=== PATIENT | female | born 1945 | race Caucasian/White ===

== ENCOUNTER 2021-12-29 17:04 | Emergency (ER) | payer MEDICARE, SELFPAY ==
--- NOTE | ~2021-12-29 | XR_ITS ---
EXAMINATION: PELVIS AND BILATERAL HIPS, LEFT SHOULDER, LEFT HUMERUS CLINICAL INFORMATION: Fall with pain COMPARISON: Chest radiograph 01/31/2019, CT abdomen pelvis 11/21/2013 TECHNIQUE: 2 views left shoulder, 2 views left humerus, single view pelvis, 2 additional views each hip FINDINGS: Shoulder and humerus: Degenerative changes are present in the shoulder with joint space narrowing and some osteophyte formation. AC joint degenerative changes are present as well. Calcifications seen overlying the humeral head and in the subacromial area could be intra-articular osseous bodies. Some may be related to rotator cuff calcification. No fractures or dislocations. The remainder of the humerus is unremarkable without fracture Pelvis and bilateral hips: Bilateral total hip prostheses are present in good position without evidence of loosening or periprosthetic fractures. No joint dislocation. The remainder of the pelvis appears unremarkable. XR/XR shoulder LT min 2V IMPRESSION: No evidence of traumatic injury involving the left shoulder, left humerus, pelvis or hips. Other incidental findings as described above
--- NOTE | ~2021-12-29 | CT_ITS ---
EXAMINATION: CT HEAD WITHOUT CONTRAST CLINICAL INFORMATION: Fall. Head strike. COMPARISON: None TECHNIQUE: Contiguous axial imaging was performed from the skull base to vertex without intravenous administration of contrast. Coronal and sagittal reformatted images are performed at CT scanner This CT examination was performed using dose optimization techniques as appropriate, variously including the following: *Automated exposure control *Adjustment of mA and/or kV according to patient size (this includes techniques or standardized protocols for targeted exams where dose is matched to indication/reason for exam; i.e. extremities or head) *Use of iterative reconstruction technique DLP: 672 mGy-cm FINDINGS: There is no evidence of acute intracranial hemorrhage or territorial infarction. No abnormal mass effect or midline shift is seen. Saleh to white matter differentiation is well preserved. No extra-axial fluid collections are identified. The ventricles are normal in size. There is no abnormal attenuation within the brain parenchyma. The osseous structures and soft tissues are normal. Small volume of mucosal thickening in the left frontal sinus. Significant mucosal density in the left sphenoid sinus and a small volume of mucosal density in the dependent right sphenoid sinus. CT/CT head/brain wo con IMPRESSION: No acute intracranial pathology.
--- NOTE | ~2021-12-29 | XR_ITS ---
EXAMINATION: PELVIS AND BILATERAL HIPS, LEFT SHOULDER, LEFT HUMERUS CLINICAL INFORMATION: Fall with pain COMPARISON: Chest radiograph 01/31/2019, CT abdomen pelvis 11/21/2013 TECHNIQUE: 2 views left shoulder, 2 views left humerus, single view pelvis, 2 additional views each hip FINDINGS: Shoulder and humerus: Degenerative changes are present in the shoulder with joint space narrowing and some osteophyte formation. AC joint degenerative changes are present as well. Calcifications seen overlying the humeral head and in the subacromial area could be intra-articular osseous bodies. Some may be related to rotator cuff calcification. No fractures or dislocations. The remainder of the humerus is unremarkable without fracture Pelvis and bilateral hips: Bilateral total hip prostheses are present in good position without evidence of loosening or periprosthetic fractures. No joint dislocation. The remainder of the pelvis appears unremarkable. XR/XR hip BI w PEL1V IMPRESSION: No evidence of traumatic injury involving the left shoulder, left humerus, pelvis or hips. Other incidental findings as described above
--- NOTE | ~2021-12-29 | XR_ITS ---
EXAMINATION: XR FEMUR, LEFT CLINICAL INFORMATION: Pain. COMPARISON: Pelvis and bilateral hip today. Left hip 05/25/2007 TECHNIQUE: AP and lateral views of the left femur were obtained. FINDINGS: Status post left hip replacement. Orthopedic components in position. The There is a small linear fracture of the lateral cortex of the proximal left femur adjacent to the proximal portion of the femoral component of the prosthesis. No dislocation. The mid and distal shaft of the femur is normal. Knee is unremarkable. XR/XR femur LT 2V IMPRESSION: 1. Status post left hip replacement. 2. There is an incomplete fracture of the proximal shaft of the femur, periprosthetic fracture. This can be further assessed with CT.
--- NOTE | ~2021-12-29 | CT_ITS ---
EXAMINATION: CT HIP WITHOUT CONTRAST, LEFT CLINICAL INFORMATION: Evaluate proximal femur fracture status post fall with pain COMPARISON: Left hip and femur radiographs performed earlier the same date TECHNIQUE: Axial images were obtained through the left hip without the administration of intravenous contrast. Coronal and sagittal reformatted images were generated. This CT examination was performed using dose optimization techniques as appropriate, variously including the following: *Automated exposure control *Adjustment of mA and/or kV according to patient size (this includes techniques or standardized protocols for targeted exams where dose is matched to indication/reason for exam; i.e. extremities or head) *Use of iterative reconstruction technique DLP: 309 mGy-cm FINDINGS: Status post noncemented left total hip arthroplasty. Incomplete nondisplaced cortical fracture through the lateral posterior proximal subtrochanteric femur corresponding to the finding on the plain radiograph. No additional fracture or involvement distal to the tip of the femoral stem. No significant periprosthetic radiolucency or areas of osteolysis. The femoral head component is centrally positioned within the acetabular cup. Mild degenerative change the pubic symphysis and SI joints with subchondral sclerosis, small osteophytes, and vacuum disc phenomena at the sacroiliac joint. Other findings: No dilated bowel loops in the [id number]. No free pelvic fluid. Bladder and gynecologic structures are grossly unremarkable-Limited assessment allowing for streak artifact. No pelvic or inguinal lymphadenopathy. Moderate atherosclerotic vascular calcifications. Mild soft tissue swelling/perimuscular edema in the left proximal thigh/anterior compartment. Status post right total hip arthroplasty. No evidence of loosening, periprosthetic fracture, or osteolysis. CT/CT hip LT wo con IMPRESSION: 1. Nondisplaced transverse incomplete left periprosthetic femur fracture involving the proximal subtrochanteric femur. No involvement distal to the tip of the femoral stem. 2. No evidence of osteolysis or loosening.
--- NOTE | ~2021-12-29 | XR_ITS ---
EXAMINATION: PELVIS AND BILATERAL HIPS, LEFT SHOULDER, LEFT HUMERUS CLINICAL INFORMATION: Fall with pain COMPARISON: Chest radiograph 01/31/2019, CT abdomen pelvis 11/21/2013 TECHNIQUE: 2 views left shoulder, 2 views left humerus, single view pelvis, 2 additional views each hip FINDINGS: Shoulder and humerus: Degenerative changes are present in the shoulder with joint space narrowing and some osteophyte formation. AC joint degenerative changes are present as well. Calcifications seen overlying the humeral head and in the subacromial area could be intra-articular osseous bodies. Some may be related to rotator cuff calcification. No fractures or dislocations. The remainder of the humerus is unremarkable without fracture Pelvis and bilateral hips: Bilateral total hip prostheses are present in good position without evidence of loosening or periprosthetic fractures. No joint dislocation. The remainder of the pelvis appears unremarkable. XR/XR humerus LT IMPRESSION: No evidence of traumatic injury involving the left shoulder, left humerus, pelvis or hips. Other incidental findings as described above
[2021-12-29 17:14] VITALS: BP 162/84; BP 166/80; PULSE 87; PULSE 96; RESP 16; TEMP 37.2; O2SAT 97; O2SAT 98; BMI 24.4
--- NOTE | 2021-12-29 17:43 | ED.FALL ---
HPI - Fall General Chief Complaint: Fall <Stacey Uriarte IRASEMA Mayers - Last Filed: 12/30/21 01:20> Stated Complaint: FALL/ LEFT SIDE LEG PAIN <Stacey Uriarte IRASEMA Mayers - Last Filed: 12/30/21 01:20> Time Seen by Provider: 12/29/21 17:15 <Stacey Kalanibrennan Mayesr CNP - Last Filed: 12/30/21 01:20> Source: patient <Stacey Uriarte IRASEMA Mayers Rita Last Filed: 12/30/21 01:20> Mode of arrival: ambulatory <Stacey Uriarte IRASEMA Mayers Rita Last Filed: 12/30/21 01:20> Limitations: no limitations <Stacey Uriarte IRASEMA Mayers Rita Last Filed: 12/30/21 01:20> History of Present Illness HPI Narrative: Patient presents to the emergency department via EMS after mechanical fall at home. She states that she was walking in her garage and went to turn tripping over a stool that her foot got caught in. She fell landing on her left side. She struck her face against the cement. Denies any loss of consciousness. Denies use of anticoagulants. Denies headache, vision changes, facial pain, neck pain. Currently reporting pain to the left shoulder and upper arm, bilateral hip, and left upper leg. Denies numbness or tingling of the extremities. Denies any precipitating symptoms prior to the fall such as dizziness or lightheadedness. Denies chest pain, palpitations, shortness of breath, difficulty breathing, of abdominal pain <StaceyIRASEMA Mayo Last Filed: 12/30/21 01:20> Related Data Home Medications: Home Medications Medication Instructions Recorded Confirmed atenolol 100 mg tablet 1 tab PO BID 12/29/21 12/29/21 nifedipine 60 mg tablet,extended 1 tab PO DAILY 12/29/21 12/29/21 release 24 hr <StaceyIRASEMA Mayo Last Filed: 12/30/21 01:20> Allergies/Adverse Reactions: Allergies Allergy/AdvReac Type Severity Reaction Status Date / Time metformin AdvReac Mild Gastrointestinal Verified 12/29/21 17:13 Upset <StaceyIRASEMA Mayo Last Filed: 12/30/21 01:20> Review of Systems Review of Systems: Constitutional: No fever, chills, weakness or fatigue. Skin: No rash or itching. Cardiovascular: No chest pain, chest pressure or chest discomfort. No palpitations Respiratory: No shortness of breath, cough or sputum production. Gastrointestinal: No anorexia, nausea, vomiting or diarrhea. No abdominal pain Genitourinary: No burning micturition. No urinary frequency or incontinence. Musculoskeletal: Joint pain as noted in HPI Psychiatric: No depression or anxiety. <Stacey Mayers CNP - Last Filed: 12/30/21 01:20> Yes all other systems are reviewed and are negative <Stacey Mayers CNP - Last Filed: 12/30/21 01:20> [facility] Past Medical History Attestation statement: The following information was validated with the patient. <Stacey Mayers CNP - Last Filed: 12/30/21 01:20> Source: old records reviewed <Stacey Mayers CNP - Last Filed: 12/30/21 01:20> Medical History: Medical History FH: bilateral hip replacements Hypertension Type 2 diabetes mellitus <Stacey Mayers CNP - Last Filed: 12/30/21 01:20> Social History Social History: Social History Alcohol intake: never Patient Tobacco Use Status: Former Tobacco user Use of substances other than those prescribed or required for medical reasons: No Advance Directives: Yes Advance Directives Information Provided: No Advance Directives on File: No <Stacey Mayers CNP - Last Filed: 12/30/21 01:20> Physical Exam Vital Signs: Vital Signs: Last Vital Signs Temp 97.2 F 12/30/21 06:00 Pulse 71 12/30/21 08:30 Resp 18 12/30/21 08:30 BP 113/75 12/30/21 08:30 Pulse Ox 98 12/30/21 08:30 O2 Del Method 12/30/21 08:30 BMI result Body Mass Index 24.4 <tSacey Mayers CNP - Last Filed: 12/30/21 01:20> Vital Signs: Last Vital Signs Temp 97.2 F 12/30/21 06:00 Pulse 71 12/30/21 08:30 Resp 18 12/30/21 08:30 BP 113/75 12/30/21 08:30 Pulse Ox 98 12/30/21 08:30 O2 Del Method 12/30/21 08:30 BMI result Body Mass Index 24.4 <Loly Shelley NP - Last Filed: 12/30/21 11:05> Appearance: Alert.?Oriented to person, place and time. No acute distress.?Normal affect. Head: Normocephalic, no tenderness upon palpation of the facial bones Eyes: Pupils equal, round and reactive to light.? EOMi. ENT: Pharynx normal.?? Neck: Normal inspection.? Neck supple.??No midline cervical spine tenderness, step-offs, deformities CVS: Heart sounds normal. Normal heart rate and rhythm.? Pulses normal.?? Respiratory: No respiratory distress.? Lung sounds clear to auscultation bilaterally?? Abdomen: Soft and non-tender. Normoactive bowel sounds. Skin: Skin warm and dry.? Normal skin color.? Extremities: No lower extremity edema.? No obvious deformities. Tenderness to palpation diffusely across the left shoulder and into the humerus, left femur tenderness upon palpation Neuro: Moves all extremities spontaneously. Sensation intact bilaterally. CN II-XII intact. No focal neuro deficits. <Stacey Mayers CNP - Last Filed: 12/30/21 01:20> Course Course Course Narrative: Patient is a 76-year-old female with a past medical history of bilateral hip replacements, hypertension, type 2 diabetes who presents to the emergency department after a mechanical fall. Will obtain CT of the head, x-ray of the left shoulder and humerus, x-ray of the bilateral hip/pelvis and left femur. She is overall well-appearing, vital signs are stable, in no apparent distress. Limited active range of motion to the left hip and left shoulder. Neurovascularly intact distally. <Stacey Mayers CNP - Last Filed: 12/30/21 01:20> Reevaluation(s) Reevaluation #1: X-ray of the bilateral hips and pelvis shows hip prostheses in good position, no dislocation, pelvis is unremarkable. X-ray of the left shoulder reveals degenerative changes, humerus without any acute fracture. X-ray of the left femur reveals an incomplete fracture of the proximal shaft of the femur, periprosthetic fracture. Consult orthopedics Dr. Loving, who reviewed the imaging does not believe patient to be a surgical candidate based on x-ray, advised to obtain CT for further examination, nonweightbearing, outpatient follow-up in office. Orthopedics to evaluate patient in the morning while in the ED <Stacey Mayers CNP - Last Filed: 12/30/21 01:20> Time: 20:05 <Stacey Mayers CNP - Last Filed: 12/30/21 01:20> Reevaluation #2: CT of the left hip reveals nondisplaced transverse incomplete left periprosthetic femur fracture involving the proximal subtrochanteric femur. COVID-19 testing is negative. Patient will be placed in physician observation at this time, she will require additional time to be evaluated by Physical therapy and for Case Management to be involved to assist with disposition to short-term rehab. <Stacey Mayers CNP - Last Filed: 12/30/21 01:20> Reevaluation #3: 1100-medications are reconciled last evening. Patient was seen by Orthopedics this morning and recommend nonweightbearing but no surgical intervention. No complaints nursing overnight. Vital signs reviewed and stable. Will continue physician observation pending disposition <Loly Shelley NP - Last Filed: 12/30/21 11:05> MDM - Fall Medical Records Attestation: I reviewed the patient's medical records. <Stacey Mayers CNP - Last Filed: 12/30/21 01:20> Lab Data Result diagrams: : 12/29/21 22:04 12/29/21 22:04 <Stacey Mayers CNP - Last Filed: 12/30/21 01:20> Labs: Lab Results 12/29/21 12/29/21 12/29/21 Range/Units 21:57 22:04 22:04 WBC 15.1 H (4.8-10.8) X10*3/uL RBC 4.80 (4.20-5.50) X10*6/uL Hgb 14.4 (12.0-16.0) g/dl Hct 41.5 (37.0-47.0) % MCV 86.5 (80.0-98.0) fL MCH 30.0 (27.0-33.0) pg MCHC 34.7 (31.0-35.0) g/dl RDW 12.5 (11.0-16.0) % Plt Count 263 (160-400) X10*3/uL MPV 9.4 (9.4-12.3) fL Immature Gran % (Auto) 0.4 (0.0-0.4) % Neut % (Auto) 80.4 H (45-73) % Lymph % (Auto) 12.5 L (20-40) % [place] % (Auto) 6.1 (2-11) % Eos % (Auto) 0.3 (0-4) % Baso % (Auto) 0.3 (0-2) % Lymph # (Auto) 1.9 (1.2-4.9) X10*3/uL [place] # (Auto) 0.9 (0.1-1.2) X10*3/uL Eos # (Auto) 0.0 (0.0-0.4) X10*3/uL Baso # (Auto) 0.1 (0.0-0.2) X10*3/uL Abs Immat Gran (auto) 0.06 H (0.00-0.03) X10*3/uL Absolute Neuts (auto) 12.1 H (2.0-8.3) x10*3/uL Absolute Nucleated RBC 0.000 (0.0-0.012) X10*3/uL Nucleated RBC % (auto) 0.0 (0.0-0.2) /100WBC Sodium 140 (135-145) mmol/L Potassium 3.9 (3.3-5.1) mmol/L Chloride 103 (96-108) mmol/L Carbon Dioxide 26 (22-29) mmol/L Anion Gap 15 (12-20) BUN 12 (9-16) mg/dL Creatinine 0.86 (0.5-1.4) mg/dL Estim Creat Clear Calc 54.9 Estimated GFR > 60 Random Glucose 229 H (60-115) mg/dL Calcium 9.4 (8.4-10.2) mg/dL Total Bilirubin 0.8 (0.0-1.0) mg/dL AST 17 (5-31) U/L ALT 10 (0-31) U/L Alkaline Phosphatase 177 H (39-117) U/L Total Protein 8.2 H (6.5-8.0) g/dL Albumin 4.1 (3.5-5.0) g/dL Urine Color Urine Appearance Urine pH (5.0-8.0) Ur Specific [place] (1.005-1.025) Urine Protein (NEG-TRACE) MG/DL Urine Glucose (UA) (NEG) MG/DL Urine Ketones (NEG) MG/DL Urine Blood (NEG) Urine Nitrite (NEG) Ur Leukocyte Esterase (NEG) Urine RBC (0) /HPF Urine WBC (0-4) /HPF Ur Squamous Epith Cells /LPF Urine Bacteria /LPF COVID-19 ([facility]) Negative (Negative) COVID-19 Clin Com See Note 12/30/21 Range/Units 01:09 WBC (4.8-10.8) X10*3/uL RBC (4.20-5.50) X10*6/uL Hgb (12.0-16.0) g/dl Hct (37.0-47.0) % MCV (80.0-98.0) fL MCH (27.0-33.0) pg MCHC (31.0-35.0) g/dl RDW (11.0-16.0) % Plt Count (160-400) X10*3/uL MPV (9.4-12.3) fL Immature Gran % (Auto) (0.0-0.4) % Neut % (Auto) (45-73) % Lymph % (Auto) (20-40) % [place] % (Auto) (2-11) % Eos % (Auto) (0-4) % Baso % (Auto) (0-2) % Lymph # (Auto) (1.2-4.9) X10*3/uL [place] # (Auto) (0.1-1.2) X10*3/uL Eos # (Auto) (0.0-0.4) X10*3/uL Baso # (Auto) (0.0-0.2) X10*3/uL Abs Immat Gran (auto) (0.00-0.03) X10*3/uL Absolute Neuts (auto) (2.0-8.3) x10*3/uL Absolute Nucleated RBC (0.0-0.012) X10*3/uL Nucleated RBC % (auto) (0.0-0.2) /100WBC Sodium (135-145) mmol/L Potassium (3.3-5.1) mmol/L Chloride (96-108) mmol/L Carbon Dioxide (22-29) mmol/L Anion Gap (12-20) BUN (9-16) mg/dL Creatinine (0.5-1.4) mg/dL Estim Creat Clear Calc Estimated GFR Random Glucose (60-115) mg/dL Calcium (8.4-10.2) mg/dL Total Bilirubin (0.0-1.0) mg/dL AST (5-31) U/L ALT (0-31) U/L Alkaline Phosphatase (39-117) U/L Total Protein (6.5-8.0) g/dL Albumin (3.5-5.0) g/dL Urine Color YELLOW Urine Appearance CLEAR Urine pH 7.5 (5.0-8.0) Ur Specific [place] 1.010 (1.005-1.025) Urine Protein NEG (NEG-TRACE) MG/DL Urine Glucose (UA) 250 H (NEG) MG/DL Urine Ketones NEG (NEG) MG/DL Urine Blood NEG (NEG) Urine Nitrite NEG (NEG) Ur Leukocyte Esterase TRACE H (NEG) Urine RBC 0 (0) /HPF Urine WBC 0-2 (0-4) /HPF Ur Squamous Epith Cells 2+ /LPF Urine Bacteria 1+ /LPF COVID-19 ([facility]) (Negative) COVID-19 Clin Com <Stacey Mayers, IRASEMA - Last Filed: 12/30/21 01:20> Lab Results 12/29/21 12/29/21 12/29/21 Range/Units 21:57 22:04 22:04 WBC 15.1 H (4.8-10.8) X10*3/uL RBC 4.80 (4.20-5.50) X10*6/uL Hgb 14.4 (12.0-16.0) g/dl Hct 41.5 (37.0-47.0) % MCV 86.5 (80.0-98.0) fL MCH 30.0 (27.0-33.0) pg MCHC 34.7 (31.0-35.0) g/dl RDW 12.5 (11.0-16.0) % Plt Count 263 (160-400) X10*3/uL MPV 9.4 (9.4-12.3) fL Immature Gran % (Auto) 0.4 (0.0-0.4) % Neut % (Auto) 80.4 H (45-73) % Lymph % (Auto) 12.5 L (20-40) % [place] % (Auto) 6.1 (2-11) % Eos % (Auto) 0.3 (0-4) % Baso % (Auto) 0.3 (0-2) % Lymph # (Auto) 1.9 (1.2-4.9) X10*3/uL [place] # (Auto) 0.9 (0.1-1.2) X10*3/uL Eos # (Auto) 0.0 (0.0-0.4) X10*3/uL Baso # (Auto) 0.1 (0.0-0.2) X10*3/uL Abs Immat Gran (auto) 0.06 H (0.00-0.03) X10*3/uL Absolute Neuts (auto) 12.1 H (2.0-8.3) x10*3/uL Absolute Nucleated RBC 0.000 (0.0-0.012) X10*3/uL Nucleated RBC % (auto) 0.0 (0.0-0.2) /100WBC Sodium 140 (135-145) mmol/L Potassium 3.9 (3.3-5.1) mmol/L Chloride 103 (96-108) mmol/L Carbon Dioxide 26 (22-29) mmol/L Anion Gap 15 (12-20) BUN 12 (9-16) mg/dL Creatinine 0.86 (0.5-1.4) mg/dL Estim Creat Clear Calc 54.9 Estimated GFR > 60 Random Glucose 229 H (60-115) mg/dL Calcium 9.4 (8.4-10.2) mg/dL Total Bilirubin 0.8 (0.0-1.0) mg/dL AST 17 (5-31) U/L ALT 10 (0-31) U/L Alkaline Phosphatase 177 H (39-117) U/L Total Protein 8.2 H (6.5-8.0) g/dL Albumin 4.1 (3.5-5.0) g/dL Urine Color Urine Appearance Urine pH (5.0-8.0) Ur Specific [place] (1.005-1.025) Urine Protein (NEG-TRACE) MG/DL Urine Glucose (UA) (NEG) MG/DL Urine Ketones (NEG) MG/DL Urine Blood (NEG) Urine Nitrite (NEG) Ur Leukocyte Esterase (NEG) Urine RBC (0) /HPF Urine WBC (0-4) /HPF Ur Squamous Epith Cells /LPF Urine Bacteria /LPF COVID-19 ([facility]) Negative (Negative) COVID-19 Clin Com See Note 12/30/21 Range/Units 01:09 WBC (4.8-10.8) X10*3/uL RBC (4.20-5.50) X10*6/uL Hgb (12.0-16.0) g/dl Hct (37.0-47.0) % MCV (80.0-98.0) fL MCH (27.0-33.0) pg MCHC (31.0-35.0) g/dl RDW (11.0-16.0) % Plt Count (160-400) X10*3/uL MPV (9.4-12.3) fL Immature Gran % (Auto) (0.0-0.4) % Neut % (Auto) (45-73) % Lymph % (Auto) (20-40) % [place] % (Auto) (2-11) % Eos % (Auto) (0-4) % Baso % (Auto) (0-2) % Lymph # (Auto) (1.2-4.9) X10*3/uL [place] # (Auto) (0.1-1.2) X10*3/uL Eos # (Auto) (0.0-0.4) X10*3/uL Baso # (Auto) (0.0-0.2) X10*3/uL Abs Immat Gran (auto) (0.00-0.03) X10*3/uL Absolute Neuts (auto) (2.0-8.3) x10*3/uL Absolute Nucleated RBC (0.0-0.012) X10*3/uL Nucleated RBC % (auto) (0.0-0.2) /100WBC Sodium (135-145) mmol/L Potassium (3.3-5.1) mmol/L Chloride (96-108) mmol/L Carbon Dioxide (22-29) mmol/L Anion Gap (12-20) BUN (9-16) mg/dL Creatinine (0.5-1.4) mg/dL Estim Creat Clear Calc Estimated GFR Random Glucose (60-115) mg/dL Calcium (8.4-10.2) mg/dL Total Bilirubin (0.0-1.0) mg/dL AST (5-31) U/L ALT (0-31) U/L Alkaline Phosphatase (39-117) U/L Total Protein (6.5-8.0) g/dL Albumin (3.5-5.0) g/dL Urine Color YELLOW Urine Appearance CLEAR Urine pH 7.5 (5.0-8.0) Ur Specific [place] 1.010 (1.005-1.025) Urine Protein NEG (NEG-TRACE) MG/DL Urine Glucose (UA) 250 H (NEG) MG/DL Urine Ketones NEG (NEG) MG/DL Urine Blood NEG (NEG) Urine Nitrite NEG (NEG) Ur Leukocyte Esterase TRACE H (NEG) Urine RBC 0 (0) /HPF Urine WBC 0-2 (0-4) /HPF Ur Squamous Epith Cells 2+ /LPF Urine Bacteria 1+ /LPF COVID-19 ([facility]) (Negative) COVID-19 Clin Com <Loly Shelley NP - Last Filed: 12/30/21 11:05> Imaging Data CT scan - head: Radiologist's impression: CT/CT head/brain wo con IMPRESSION: No acute intracranial pathology. <Stacey Mayers CNP - Last Filed: 12/30/21 01:20> XR Shoulder: Radiologist's impression: FINDINGS: Shoulder and humerus: Degenerative changes are present in the shoulder with joint space narrowing and some osteophyte formation. AC joint degenerative changes are present as well. Calcifications seen overlying the humeral head and in the subacromial area could be intra-articular osseous bodies. Some may be related to rotator cuff calcification. No fractures or dislocations. The remainder of the humerus is unremarkable without fracture XR/XR hip BI w PEL1V IMPRESSION: No evidence of traumatic injury involving the left shoulder, left humerus, pelvis or hips. Other incidental findings as described above? <Stacey Mayers CNP - Last Filed: 12/30/21 01:20> XR hips: Radiologist's impression: FINDINGS: Pelvis and bilateral hips: Bilateral total hip prostheses are present in good position without evidence of loosening or periprosthetic fractures. No joint dislocation. The remainder of the pelvis appears unremarkable. XR/XR shoulder LT min 2V IMPRESSION: No evidence of traumatic injury involving the left shoulder, left humerus, pelvis or hips. Other incidental findings as described above? <Stacey Mayers CNP - Last Filed: 12/30/21 01:20> XR L femur: Radiologist's impression: XR/XR femur LT 2V IMPRESSION: ? 1. Status post left hip replacement. 2. There is an incomplete fracture of the proximal shaft of the femur, periprosthetic fracture. This can be further assessed with CT. <Stacey Mayers CNP - Last Filed: 12/30/21 01:20> Discharge Plan Discharge Clinical Impression: Femur fracture, left <Stacey Mayers CNP - Last Filed: 12/30/21 01:20> Patient Disposition: Still a Patient <Stacey Mayers CNP - Last Filed: 12/30/21 01:20> Additional Instructions: Follow-up outpatient with Orthopedics, contact their office to schedule follow-up. <Stacey Mayers CNP - Last Filed: 12/30/21 01:20> Prescriptions: No Action atenolol 100 mg tablet 1 tab PO BID nifedipine 60 mg tablet extended release 24hr 1 tab PO DAILY <Stacey Mayers CNP - Last Filed: 12/30/21 01:20> Referrals: Flavio Loving MD [Physician] - 1 week <Stacey Mayers CNP - Last Filed: 12/30/21 01:20>
[2021-12-29] MEDS: Acetaminophen 325 MG TABLET 975 MG PO (19:23)
--- NOTE | 2021-12-29 21:50 | PHA.MEDREC ---
Pharmacy Consult ? Medication Reconciliation Pharmacy has completed the medication reconciliation. SPOKE WITH PT. SHE STOPPED METFORMIN ABOUT A MONTH AGO DUE TO SIDE EFFECTS
[2021-12-29 22:12] LABS: MANUAL DIFF FLAG NO
[2021-12-29 22:14] LABS: Basophils Absolute Auto 0.1 X10*3/uL (0.0-0.2); Basophils Percent Auto 0.3 % (0-2); Eosinophils Percent Auto 0.3 % (0-4); Hematocrit 41.5 % (37.0-47.0); Hemoglobin 14.4 g/dl (12.0-16.0); Imm Gran Abs Auto 0.06 X10*3/uL (0.00-0.03); Imm Gran Pct Auto 0.4 % (0.0-0.4); Lymphocytes Absolute Auto 1.9 X10*3/uL (1.2-4.9); Lymphocytes Percent Auto 12.5 % (20-40); Mean Corpuscular HGB Conc 34.7 g/dl (31.0-35.0); Mean Corpuscular Volume 86.5 fL (80.0-98.0); Mean Platelet Volume 9.4 fL (9.4-12.3); Monocytes Absolute Auto 0.9 X10*3/uL (0.1-1.2); Monocytes Percent Auto 6.1 % (2-11); Neutrophils Absolute Auto 12.1 x10*3/uL (2.0-8.3); Neutrophils Percent Auto 80.4 % (45-73); Platelet Count 263 X10*3/uL (160-400); Red Cell Distribution Width 12.5 % (11.0-16.0); White Blood Count 15.1 X10*3/uL (4.8-10.8)
[2021-12-29 22:26] LABS: COVID-19 Test Negative (Negative)
[2021-12-29 22:28] LABS: Alanine Aminotransferase 10 U/L (0-31); Albumin Level 4.1 g/dL (3.5-5.0); Alkaline Phosphatase 177 U/L (39-117); Anion Gap 15 (12-20); Aspartate Amino Transferase 17 U/L (5-31); Bilirubin Total 0.8 mg/dL (0.0-1.0); Blood Urea Nitrogen 12 mg/dL (9-16); Calcium 9.4 mg/dL (8.4-10.2); Carbon Dioxide 26 mmol/L (22-29); Chloride 103 mmol/L (96-108); Creatinine Clr Calc Pharmacy 54.9; Estimated Glomerular Filt Rate > 60; Glucose Random 229 mg/dL (60-115); Potassium 3.9 mmol/L (3.3-5.1); Sodium 140 mmol/L (135-145); Total Protein 8.2 g/dL (6.5-8.0)
--- NOTE | 2021-12-29 23:03 | MHC.CM.ED ---
CM saw pt at request of Stacey TINOCO. Pt had fall and sustained a femur fx. Doubt surgical. PT evaluation ordered. Ortho will see pt in the morning. Pt requesting acute rehab, with [facility] being first choice. Referrals made to 3 acute facilities. Vax/boosted. HCP reviewed, completed and signed. Copies given. Uploaded into [facility] and [facility]. HCP/daughter in-law Dorie Gallagher ([phone]). D/C plan: acute rehab. Pt does not want to go to [facility] in a assisted. Pt does understand that she will be non-weight bearing and lives alone. CM will follow for d/c needs.
[2021-12-30] VITALS (7 sets, daily range): BP systolic 113–177; BP diastolic 61–98; PULSE 62–71; RESP 14–18; TEMP 36.2–36.6; O2SAT 94–98
[2021-12-30 01:15] LABS: Appearance Urine CLEAR; Color Urine YELLOW; Glucose Urine UA 250 MG/DL (NEG); Leukocyte Esterase Urine TRACE (NEG); Nitrite Urine NEG (NEG); PH 7.5 (5.0-8.0); Urine Blood NEG (NEG); Urine Ketones NEG (NEG); Urine Protein NEG (NEG-TRACE)
--- NOTE | 2021-12-30 01:20 | PC.NURSE ---
Addendum entered by Galilea Thorpe 12/30/21 01:22: pt states she takes atenolol in AM, and atenolol and nifedipine in PM. Per Hayes, this RN to notify pharmacy to change med times as per pt. This RN contacted pharmacy who state they will change nifedipine order time Original Note: This RN notified Hayes, MEDIC TECHNICIAN regarding pt's BP. BP meds not due until AM. Per Hayes, medicate with PO antihypertensives at this time.
[2021-12-30 01:21] LABS: Bacteria Urine 1+ /LPF; RBC Urine 0 /HPF (0); Squamous Epithelial Cell Urine 2+ /LPF; WBC Urine 0-2 /HPF (0-4)
[2021-12-30] MEDS: atenoloL 100 MG TABLET PO (01:31)
[2021-12-30] MEDS: Acetaminophen 325 MG TABLET 650 MG PO ×2 (01:31→10:22)
--- NOTE | 2021-12-30 04:53 | PC.NURSE ---
Addendum entered by Galilea Thorpe 12/30/21 05:01: Per AGUSTIN Arreaga OK to give nifedipine at this time and pt to receive next dose at 2100 as scheduled. Original Note: This RN rec'd nifedipine from RN sup to medicate pt with. While this RN walking to pt's room, this RN was asked to assist in a respiratory arrest that arrived in dept. At this time, pt is asleep. VS to be reassessed and plan to be discussed with provider regarding whether or not to medicate with nifedipine at this time.
[2021-12-30] MEDS: NIFEdipine ER 60 MG TAB.ER.24 PO (05:28)
--- NOTE | 2021-12-30 06:27 | PC.NURSE ---
PATIENT WAS GIVEN A BED BATH BY MYSELF AND PCT NUBIA PER GREGORY IN PLACE .
--- NOTE | 2021-12-30 11:44 | MHC.CM.ED ---
covid vax x 3 Pfizer 08/24/20 09/15/20 06/17/21
--- NOTE | 2021-12-30 13:29 | MHC.CM.ED ---
PATIENT TO [facility]IA [facility] PATIENT AND RN AWARE
--- NOTE | 2021-12-30 13:33 | PC.NURSE ---
patient a&ox3, pure wick patient/draining, pt comfortable denies pain until needing to move in bed, eating lunch, call gee within reach, will continue to monitor.
--- NOTE | 2021-12-30 14:48 | P.CONOP_ITS ---
History of Present Illness HPI Consult date: 12/30/21 Chief complaint: FALL/ LEFT SIDE LEG PAIN Narrative: This is a 76 yo F with a 10-12 yr h/o bilateral CHUN who sustained a mechanical fall last night and was brought to the ED by[facility] ambulance. She described left lateral hip pain. Imaging revealed a periprosthetic fracture of the left femur. She denies other injury and LOC. Review of Systems Review of Systems: Yes all other systems are reviewed and are negative PMFSH Past Medical History Medical History FH: bilateral hip replacements Hypertension Type 2 diabetes mellitus Social History Social History Alcohol intake: never Patient Tobacco Use Status: Former Tobacco user Use of substances other than those prescribed or required for medical reasons: No Advance Directives: Yes Advance Directives Information Provided: No Advance Directives on File: No Meds Allergies Allergy/AdvReac Type Severity Reaction Status Date / Time metformin AdvReac Mild Gastrointestinal Verified 12/29/21 17:13 Upset Active Medications: Current Medications Acetaminophen (Acetaminophen 325 Mg Tablet) 650 mg PO Q6H PRN PRN Reason: Pain, Moderate (Pain Scale 4-6 Last Admin: 12/30/21 10:22 Dose: 650 mg Atenolol (Atenolol 100 Mg Tablet) 100 mg PO BID [facility]; Protocol Last Admin: 12/30/21 01:31 Dose: 100 mg Nifedipine (Nifedipine Er 60 Mg Tab.Er.24) 60 mg PO BEDTIME PATRICIA; Protocol Last Admin: 12/30/21 05:28 Dose: 60 mg Pharmacy Consult (Consult Rx Perform Med Rec) 1 each MISCELLANE ONCE PRN PRN Reason: Consult order Home Medications Medication Instructions Recorded Confirmed Last Taken Type atenolol 100 mg tablet 1 tab PO BID 12/29/21 12/29/21 Unknown History nifedipine 60 mg tablet,extended 1 tab PO DAILY 12/29/21 12/29/21 Unknown History release 24 hr Physical Exam Vital Signs: Vital Signs: Last Vital Signs Temp 97.1 F 12/30/21 14:00 Pulse 62 12/30/21 14:00 Resp 14 12/30/21 14:00 BP 129/61 12/30/21 14:00 Pulse Ox 94 12/30/21 14:00 O2 Del Method 12/30/21 14:00 BMI result Body Mass Index 24.4 Extrem: Other: skin c/d/i left hip. TTP lateral left hip Results Labs Result Diagrams: 12/29/21 22:04 12/29/21 22:04 Labs: Abnormal lab results 12/29/21 12/29/21 12/30/21 Range/Units 22:04 22:04 01:09 WBC 15.1 H (4.8-10.8) X10*3/uL Neut % (Auto) 80.4 H (45-73) % Lymph % (Auto) 12.5 L (20-40) % Abs Immat Gran (auto) 0.06 H (0.00-0.03) X10*3/uL Absolute Neuts (auto) 12.1 H (2.0-8.3) x10*3/uL Random Glucose 229 H (60-115) mg/dL Alkaline Phosphatase 177 H (39-117) U/L Total Protein 8.2 H (6.5-8.0) g/dL Urine Glucose (UA) 250 H (NEG) MG/DL Ur Leukocyte Esterase TRACE H (NEG) H & H 12/29/21 Range/Units 22:04 Hgb 14.4 (12.0-16.0) g/dl Hct 41.5 (37.0-47.0) % All other labs normal. Diagnostic results Hip x-ray: image reviewed (Left CHUN in expected position with lateral small cortical disruption without any evidence of instability.) Hip CT: image reviewed (lateral cortical fracture just distal to greater trocha nter.) Assessment and Plan (1) Periprosthetic fracture around internal prosthetic hip joint: Status: Acute This is an active 76 yo F with a periprosthetic fracture around a left hip prosthesis. The prosthesis appears stable. I recommend NWB LLE and follow up in 2 weeks for repeat radiographs. I explained this to her and answered all her questions. (2) Femur fracture, left: Status: Acute Procedures Date of Service Date of Service: 12/30/21
--- NOTE | 2021-12-30 14:58 | PC.NURSE ---
report given to radhika for pt transport
== END 2021-12-30 16:09 | disposition skilled nursing facility (03) ==
PROVIDERS: Nurse Practitioner Family; Emergency Provider Emergency Medicine; PCP Internal Medicine
DX: S72.25XA Nondisplaced subtrochanteric fracture of left femur, initial encounter for closed fracture (principal); M97.02XA Periprosthetic fracture around internal prosthetic left hip joint, initial encounter; W01.0XXA Fall on same level from slipping, tripping and stumbling without subsequent striking against object, initial encounter; M79.605 Pain in left leg; I10 Essential (primary) hypertension; E11.9 Type 2 diabetes mellitus without complications; Z96.643 Presence of artificial hip joint, bilateral; Z87.891 Personal history of nicotine dependence; Z20.822 Contact with and (suspected) exposure to COVID-19; Y93.89 Activity, other specified; Y92.015 Private garage of single-family (private) house as the place of occurrence of the external cause; Y99.9 Unspecified external cause status
CPT/HCPCS: 70450; 73030; 73060; 73521; 73552; 73700; 80053; 81001; 85025; 87635; 97162; 99285

== ENCOUNTER 2022-01-16 09:41 | Outpatient (REF) | payer MEDICARE, SELFPAY ==
--- NOTE | ~2022-01-16 | XR_ITS ---
EXAMINATION: XR PELVIS CLINICAL INFORMATION: Pain. COMPARISON: CT left hip dated 12/29/2021; prior radiographs dated 12/29/2021. TECHNIQUE: 3-D views of the pelvis are submitted. FINDINGS: Bony alignment is normal. There is bony demineralization. There is an intact right hip total arthroplasty. There is a periprosthetic fracture again seen of the proximal left femur at the lateral subtrochanteric region. Sacroiliac joints and pubic symphysis appear normal. No abnormal soft tissue calcifications. There are right femoral atherosclerotic calcifications. XR/XR pelvis 1-2V IMPRESSION: A right hip total arthroplasty remains intact. A proximal left femur periprosthetic fracture is redemonstrated, without change in alignment. There is no significant new callus formation.
== END 2022-01-16 09:42 | disposition home or self-care (01) ==
LOC: HO.HOSX 09:41
PROVIDERS: Visit Provider Orthopaedic Surgery
DX: M97.8XXA Periprosthetic fracture around other internal prosthetic joint, initial encounter (principal); Z96.642 Presence of left artificial hip joint
CPT/HCPCS: 72170; 99212

== ENCOUNTER 2022-02-12 | Outpatient (REF) | payer MEDICARE, SELFPAY ==
--- NOTE | ~2022-02-12 | XR_ITS ---
EXAMINATION: XR PELVIS XR HIP, LEFT CLINICAL INFORMATION: Pain COMPARISON: 01/16/2022 TECHNIQUE: Frontal view of the pelvis. Additional frog-leg lateral view of the left hip. FINDINGS: Bilateral total hip arthroplasties are again noted with appropriate alignment. Increased callus formation at the periprosthetic fracture of the proximal left femur along the femoral component. No new fracture. The pelvic rim is intact. Normal bowel gas pattern. XR/XR pelvis 1-2V IMPRESSION: Appropriate alignment of bilateral total hip arthroplasties. Increased callus formation at the periprosthetic proximal left femur fracture.
--- NOTE | ~2022-02-12 | XR_ITS ---
EXAMINATION: XR PELVIS XR HIP, LEFT CLINICAL INFORMATION: Pain COMPARISON: 01/16/2022 TECHNIQUE: Frontal view of the pelvis. Additional frog-leg lateral view of the left hip. FINDINGS: Bilateral total hip arthroplasties are again noted with appropriate alignment. Increased callus formation at the periprosthetic fracture of the proximal left femur along the femoral component. No new fracture. The pelvic rim is intact. Normal bowel gas pattern. XR/XR hip LT 1V IMPRESSION: Appropriate alignment of bilateral total hip arthroplasties. Increased callus formation at the periprosthetic proximal left femur fracture.
== END 2022-02-12 00:01 | disposition home or self-care (01) ==
LOC: HO.HOSX
PROVIDERS: Visit Provider Orthopaedic Surgery
DX: M97.8XXA Periprosthetic fracture around other internal prosthetic joint, initial encounter (principal); Z96.642 Presence of left artificial hip joint
CPT/HCPCS: 72170; 73501; 99212

== ENCOUNTER 2022-03-12 10:37 | Outpatient (REF) | payer MEDICARE, SELFPAY ==
--- NOTE | ~2022-03-12 | XR_ITS ---
EXAMINATION: XR PELVIS CLINICAL INFORMATION: Hip pain COMPARISON: Previous x-ray January 2022 TECHNIQUE: AP view of the pelvis. FINDINGS: There are bilateral hip replacements in satisfactory position. Callus formation at the left proximal femoral shaft periprosthetic fracture. Similar to recent exam. Atherosclerotic disease. XR/XR pelvis 1-2V IMPRESSION: Callus formation at the left proximal femoral shaft periprosthetic fracture similar to January 2022 exam. Bilateral hip replacements.
== END 2022-03-12 10:38 | disposition home or self-care (01) ==
LOC: HO.HOSX 10:37
PROVIDERS: Visit Provider Orthopaedic Surgery
DX: M97.8XXD Periprosthetic fracture around other internal prosthetic joint, subsequent encounter (principal); W19.XXXD Unspecified fall, subsequent encounter; Z96.642 Presence of left artificial hip joint
CPT/HCPCS: 72170; 99212

== ENCOUNTER 2024-12-08 15:51 | Outpatient (AMB) | payer MEDICARE, SELFPAY ==
--- NOTE | 2024-12-08 15:57 | MHC.PC.OV ---
Vital Signs 12/08/24 16:01 Height 5 ft 7 in Weight 69.853 kg BMI 24.1 BP 160/80 H Blood Pressure Location Lt brachial Position Sitting Respiration 16 Pulse 83 Pulse Source Pulse Oximeter Temp 98.6 F Temp Source Temporal Artery Scan Pulse Oximetry (%) 97 Oxygen Delivery Method Room Air Intake Visit Reasons: High BP & type II diabetes - [facility] [place] [facility] Required: No Accompanied by: sister in law Allergies metformin Adverse Reaction (Mild, Verified 12/08/24 15:57) Gastrointestinal Upset Medication List - Last Reconciled 12/08/24 by AGUSTIN Post atenolol 1 tab PO BID doxycycline hyclate 100 mg PO BID nifedipine ER 1 tab PO DAILY Tobacco use date assessed: 12/08/24 HPI HPI Comments History of Present Illness Details 79-year-old female with history of hypertension, type 2 diabetes, cataracts, varicose veins presents to the office today accompanied by her daughter, Doris, for management of chronic conditions and to establish cares. Hypertension-blood pressure on recheck 140/76. Compliant with nifedipine and atenolol. Type 2 diabetes-admits she is a noncompliant patient. No recent hemoglobin A1c available to review. Not on any medications at this time. Not checking her glucose levels. Interested in continuous glucose monitor. Noncompliant with diabetic diet Varicose veins bilateral-left greater than right. Occasionally pain and swelling. She elevates her legs with some relief. Concerns: Previously followed with Dr. Guerrero s/p cataract extraction with lens. Has apathy by Dr. Guerrero in several years and as a result has been unable to secure an appointment until May 2025. However, she tells me that over the last few weeks, has had central vision issues. She feels like she is going to become blind. No issues with peripheral vision. No ocular pain. No pain with eye movements. No floaters. Multiple skin lesions-present for many months. No drainage. They are itchy and as a result have become excoriated Health maintenance: No longer undergoing mammograms or screening colonoscopies Due for DEXA scan ROS: General: No fevers, malaise, unintentional weight loss HEENT: see hpi Cardiovascular: No chest pain, palpitations. See HPI Respiratory: No shortness of breath, wheezing, cough GI: No abdominal pain, nausea, vomiting, diarrhea, constipation, melena, hematochezia : No dysuria, hematuria, increased urinary frequency, decreased urinary output MSK: No myalgia, back pain Neuro: No headaches, weakness, paresthesias Skin: No rashes or lesions. See HPI EXAM: Constitutional - Awake and Alert, No apparent distress Eyes - PERRL Cardiovascular - S1S2, RRR Respiratory - Normal lung expansion, Normal respiratory effort, No respiratory distress, CTA bilaterally Extremities - no calf tenderness bilaterally, no swelling . Edematous, tortuous varicosities of the bilateral lower extremities Skin - Warm/Dry . Multiple excoriated shallow skin lesions on the extremities and trunk with minimal surrounding erythema, no warmth Neurological - Alert & oriented x3 Psychological - Appropriate affect [facility] Medical History (Updated 12/08/24 @ 16:40 by AGUSTIN Post) Chronic venous stasis dermatitis Varicose veins of bilateral lower extremities with pain Cataract Vision loss of left eye Hypertension FH: bilateral hip replacements Type 2 diabetes mellitus Surgical History (Updated 12/08/24 @ 16:35 by AGUSTIN Post) H/O cataract removal with insertion of prosthetic lens Social History Alcohol intake: never Patient Tobacco Use Status: Former Tobacco user e-Cigarette/Vaping Use: Never Used Questionnaire PHQ-9 Over the last 2 weeks, how often have you been bothered by any of the following problems? 1. Little interest or pleasure in doing things: nearly every day 2. Feeling down, depressed, or hopeless: nearly every day 3. Trouble falling or staying asleep, or sleeping too much: nearly every day 4. Feeling tired or having little energy: more than half the days 5. Poor appetite or overeating: several days 6. Feeling bad about yourself - or that you are a failure or have let yourself or your family down: not at all 7. Trouble concentrating on things, such as reading the newspaper or watching television: not at all 8. Moving or speaking so slowly that other people could have noticed. Or the opposite - being so fidgety or restless that you have been moving around a lot more than usual: not at all 9. Thoughts that you would be better off or of hurting yourself in some way: not at all Total score: 12 Source: Developed by Drs. Osito Jasso, Analisa Hassan, Ramiro Nichols and colleagues, with an educational chelsie from [employer]. Thrive Questionnaire Date Thrive assessed: 12/08/24 I am a: Patient What is your living situation today?: I have a steady place to live Within the past 12 months, did the food you bought not last and you didn't have the money to get more?: Never true Within the past 12 months, did you worry whether your food would run out before you got money to buy more?: Never true Do you have trouble paying for medicines?: No Do you have trouble getting transportation to medical appointments?: No Do you have trouble paying your heating and electricity bill?: Yes Do you have trouble taking care of your child, family member or friend?: No Do you have trouble with day-to-day activities such as bathing, preparing meals, shopping, managing finances, etc.?: No Are you currently unemployed and looking for a job?: No Are you interested in more education?: No THRIVE Score: 1 CONCHITA-7 AMB Questionnaire CONCHITA-7 Date CONCHITA - 7 assessed: 12/08/24 Feeling nervous, anxious, or on edge: 1 = Several days Not being able to stop or control worryin = Several days Worrying too much about different things: 1 = Several days Trouble relaxin = Several days Being so restless that it is hard to sit still: 1 = Several days Becoming easily annoyed or irritable: 1 = Several days Feeling afraid as if something awful might happen: 0 = Not at all Total CONCHITA-7 score (0-4 normal; 5-9 mild; 10-14 moderate; 15-21 severe): 6 Source: Developed by Drs. Osito Jasso, Analisa Hassan, Ramiro Nichols and colleagues, with an educational chelsie from [employer]. Physical exam (Primary Care) Vital Signs: Last Vital Signs Temp 98.6 F 12/08/24 16:01 Pulse 83 12/08/24 16:01 Resp 16 12/08/24 16:01 BP 160/80 H 12/08/24 16:01 Pulse Ox 97 12/08/24 16:01 Oxygen Delivery Method Room Air 12/08/24 16:01 BMI result Body Mass Index 24.1 Tobacco/Smoking Status: Tobacco use Status Tobacco use date assessed 12/08/24 12/08/24 16:04 Patient Tobacco Use Status Former Tobacco user 12/08/24 16:04 e-Cigarette/Vaping Use Never Used 12/08/24 16:04 PHQ-9: PHQ-9 Score PHQ-9: Total score 12 12/08/24 16:13 Thrive Assessment: Date of Thrive Assessment Date Thrive assessed 12/08/24 12/08/24 16:05 Coding Level of Care Code New Pt Level 4 (36736) Complex EM visit Add On G2211 Diagnoses Hypertension I10 Type 2 diabetes mellitus E11.9 Vision loss of left eye H54.62 Varicose veins of bilateral lower extremities with pain I83.813 Chronic venous stasis dermatitis I87.2 Superficial skin lesion L98.9 Assessment & Plan Assessment & Plan (1) Hypertension: Code(s): I10 - Essential (primary) hypertension Category: Medical Plan: Borderline. Continue atenolol twice daily and nifedipine. Low-sodium diet (2) Type 2 diabetes mellitus: Code(s): E11.9 - Type 2 diabetes mellitus without complications Category: Medical Plan: Hemoglobin A1c ordered. Counseled on diabetic diet. Medications to be initiated pending results. Recommend annual eye exams and foot exams. Microalbuminuria screen ordered (3) Vision loss of left eye: Code(s): H54.62 - Unqualified visual loss, left eye, normal vision right eye Category: Medical Plan: Given ongoing central vision loss/near loss of the eyes bilaterally, urgent referral to Ophthalmology place. (4) Varicose veins of bilateral lower extremities with pain: Code(s): I83.813 - Varicose veins of bilateral lower extremities with pain Category: Medical Plan: Referred to vascular surgery. Continue leg elevation and trial compression stockings (5) Chronic venous stasis dermatitis: Code(s): I87.2 - Venous insufficiency (chronic) (peripheral) Category: Medical Plan: Ammonia and lactate ordered (6) Superficial skin lesion: Code(s): L98.9 - Disorder of the skin and subcutaneous tissue, unspecified Category: Medical Plan: Doxycycline ordered. Advised to keep the area clean. Bactroban also prescribed Plan Follow-up in the office in 3 months. Labs ordered today. DEXA scan ordered. Orders: Orders Complete Blood Count Auto Diff Today E11.9 - Type 2 diabetes mellitus without complications, H26.9 - Unspecified cataract, H54.62 - Unqualified visual loss, left eye, normal vision right eye, I10 - Essential (primary) hypertension Liver Panel Today E11.9 - Type 2 diabetes mellitus without complications, H26.9 - Unspecified cataract, H54.62 - Unqualified visual loss, left eye, normal vision right eye, I10 - Essential (primary) hypertension TSH reflex Free T4 Today E11.9 - Type 2 diabetes mellitus without complications, H26.9 - Unspecified cataract, H54.62 - Unqualified visual loss, left eye, normal vision right eye, I10 - Essential (primary) hypertension XR DEXA axial skeleton Today Z78.0 - Asymptomatic menopausal state Basic Metabolic Panel Today E11.9 - Type 2 diabetes mellitus without complications, H26.9 - Unspecified cataract, H54.62 - Unqualified visual loss, left eye, normal vision right eye, I10 - Essential (primary) hypertension Hemoglobin A1c Today E11.9 - Type 2 diabetes mellitus without complications, H26.9 - Unspecified cataract, H54.62 - Unqualified visual loss, left eye, normal vision right eye, I10 - Essential (primary) hypertension Lipid Panel Today E11.9 - Type 2 diabetes mellitus without complications, H26.9 - Unspecified cataract, H54.62 - Unqualified visual loss, left eye, normal vision right eye, I10 - Essential (primary) hypertension Microalbumin, Random (w Creat) Today E11.9 - Type 2 diabetes mellitus without complications, H26.9 - Unspecified cataract, H54.62 - Unqualified visual loss, left eye, normal vision right eye, I10 - Essential (primary) hypertension Referrals Endocrinology Referral E11.9 - Type 2 diabetes mellitus without complications Ophthalmology Referral E11.9 - Type 2 diabetes mellitus without complications, H26.9 - Unspecified cataract, H54.62 - Unqualified visual loss, left eye, normal vision right eye, I10 - Essential (primary) hypertension Vascular Surgery Referral I83.813 - Varicose veins of bilateral lower extremities with pain Medications: New ammonium lactate 12% 1 appl topical BID 400 grams 1RF mupirocin 2% (Cent[place]) 1 appl topical BID 22 grams 0RF doxycycline hyclate 100 mg PO BID 14 caps 0RF
[2024-12-08 16:01] VITALS: BP 160/80; PULSE 83; RESP 16; TEMP 37; O2SAT 97; BMI 24.1
== END 2024-12-08 16:38 | disposition home or self-care (01) ==
LOC: HO.HMCHD 15:52
PROVIDERS: PCP Internal Medicine; Visit Provider Physician Assistant
DX: I10 Essential (primary) hypertension (principal); E11.9 Type 2 diabetes mellitus without complications; H54.62 Unqualified visual loss, left eye, normal vision right eye; I83.813 Varicose veins of bilateral lower extremities with pain; I87.2 Venous insufficiency (chronic) (peripheral); L98.9 Disorder of the skin and subcutaneous tissue, unspecified

== ENCOUNTER → 2024-12-08 15:51 | Outpatient (BNVA) | payer MEDICARE, SELFPAY | PROVIDERS: PCP Internal Medicine; Visit Provider Physician Assistant | DX: I10 Essential (primary) hypertension (principal); E11.9 Type 2 diabetes mellitus without complications; H54.62 Unqualified visual loss, left eye, normal vision right eye; I83.813 Varicose veins of bilateral lower extremities with pain; I87.2 Venous insufficiency (chronic) (peripheral); L98.9 Disorder of the skin and subcutaneous tissue, unspecified; Z79.899 Other long term (current) drug therapy; Z13.30 Encounter for screening examination for mental health and behavioral disorders, unspecified; Z13.31 Encounter for screening for depression | CPT/HCPCS: 96127; 99202 ==

== ENCOUNTER 2024-12-09 11:13 | Outpatient (REF) | payer MEDICARE, SELFPAY ==
[2024-12-09 13:28] LABS: MANUAL DIFF FLAG NO
[2024-12-09 13:30] LABS: Hematocrit 42.0 % (37.0-47.0); Hemoglobin 14.4 g/dl (12.0-16.0); Imm Gran Abs Auto 0.02 X10*3/uL (0.00-0.03); Imm Gran Pct Auto 0.2 % (0.0-0.4); Lymphocytes Absolute Auto 2.3 X10*3/uL (1.2-4.9); Mean Corpuscular HGB Conc 34.3 g/dl (31.0-35.0); Mean Corpuscular Hemoglobin 30.1 pg (27.0-33.0); Mean Corpuscular Volume 87.9 fL (80.0-98.0); NRBC Abs Auto 0.000 X10*3/uL (0.0-0.012); NRBC Pct Auto 0.0 /100WBC (0.0-0.2); Platelet Count 308 X10*3/uL (160-400); Red Blood Count 4.78 X10*6/uL (4.20-5.50); White Blood Count 8.0 X10*3/uL (4.8-10.8)
[2024-12-09 13:52] LABS: Hemoglobin A1C 323.4227 umol/L; Total Hemoglobin (HGBA1C) 3661.2905 umol/L
[2024-12-09 13:53] LABS: Microalbum/Creatinine Ratio Ur 13.1 ug/mg cr (<30)
[2024-12-09 13:55] LABS: Alanine Aminotransferase 16 U/L (0-31); Albumin Level 3.9 g/dL (3.5-5.0); Alkaline Phosphatase 133 U/L (39-117); Anion Gap 16 (12-20); Aspartate Amino Transferase 34 U/L (5-31); Blood Urea Nitrogen 16 mg/dL (9-16); Calcium 8.9 mg/dL (8.4-10.2); Carbon Dioxide 23 mmol/L (22-29); Chloride 104 mmol/L (96-108); Cholesterol 171 mg/dL (<200); Estimated Glomerular Filt Rate > 60; HDL Cholesterol 32 mg/dL (>40); Potassium 3.7 mmol/L (3.3-5.1); Sodium 139 mmol/L (135-145); Total Protein 8.1 g/dL (6.5-8.0); Triglycerides 149 mg/dL (<150)
== END 2024-12-09 11:14 | disposition home or self-care (01) ==
LOC: HO.HMGCLDS 11:13
PROVIDERS: PCP Physician Assistant; Visit Provider Physician Assistant
DX: E11.9 Type 2 diabetes mellitus without complications (principal); I10 Essential (primary) hypertension; H54.62 Unqualified visual loss, left eye, normal vision right eye; H26.9 Unspecified cataract
CPT/HCPCS: 36415; 80048; 80061; 80076; 82043; 82570; 83036; 84443; 85025